=== PATIENT | male | born 1965 | race Caucasian/White ===

== ENCOUNTER → 2016-12-07 | Outpatient (REF) | payer MEDICARE | LOC: M LAB REF 12:54 | PROVIDERS: ATTEND Internal Medicine | DX: G40.309 Generalized idiopathic epilepsy and epileptic syndromes, not intractable, without status epilepticus (principal); I63.511 Cerebral infarction due to unspecified occlusion or stenosis of right middle cerebral artery; B00.89 Other herpesviral infection ==

== ENCOUNTER 2017-02-20 14:59 | Inpatient (IN) | payer MEDICARE ==
[~2017-02-20] VITALS: Ht 177.8 cm; Wt 70.5 kg
[2017-02-20] MEDS ORDERED: ZONI100C2 PO (15:18)
[2017-02-20] MEDS ORDERED: ESCI20TA (15:18)
[2017-02-20] MEDS ORDERED: BACL10TA2 PO (15:18)
[2017-02-20] MEDS ORDERED: ATOR40TA PO (15:18)
[2017-02-20] MEDS ORDERED: LAMO150T PO (15:18)
[2017-02-20] MEDS ORDERED: LORazepam 2 MG/ML VIAL (J2060) IV STA (15:32)
[2017-02-20 15:46] LABS: BASO # 0.1 K/mm3 (0.0-0.2); BASO % 1.1 % (0.0-1.0); EOS # 0.1 K/mm3 (0.0-0.50); EOS % 2.5 % (0.0-3.0); LARGE UNSTAINED CELL # 0.1 K/mm3 (0.0-0.4); LYMPH # 1.3 K/mm3 (1.5-4.5); LYMPH % 22.7 % (24.0-44.0); MEAN CORPUSCULAR HEMOGLOBIN 29.1 pg (27.0-33.0); MEAN CORPUSCULAR VOLUME 88.2 fl (80.0-96.0); MONO # 0.3 K/mm3 (0.0-0.8); MONO % 5.1 % (0.0-5.0); NEUTROPHILS # 3.8 K/mm3 (1.8-7.7); NEUTROPHILS % 67.6 % (36.0-66.0); PLATELET COUNT, AUTOMATED 270 k/mm3 (150-450); RED CELL DISTRIBUTION WIDTH 12.9 % (11.5-14.5); WHITE BLOOD COUNT 5.6 K/mm3 (4.0-10.0)
[2017-02-20 16:09] LABS: ANION GAP 6 MEQ/L (8-16); BLOOD UREA NITROGEN 12 MG/DL (7-18); CALCIUM LEVEL 8.3 MG/DL (8.5-10.1); CARBON DIOXIDE LEVEL 28 MEQ/L (21-32); CHLORIDE LEVEL 104 MEQ/L (98-107); CREATININE FOR GFR 0.96 MG/DL (0.70-1.30); GLOMERULAR FILTRATION RATE > 60.0 (>56); GLUCOSE, FASTING 96 MG/DL (70-105); POTASSIUM SERUM 3.6 MEQ/L (3.5-5.1); SODIUM LEVEL 138 MEQ/L (136-145)
[2017-02-20] MEDS ORDERED: ASPI1TAB PO (17:07)
[2017-02-20] MEDS ORDERED: lamoTRIgine 25 MG TAB PO ONE (17:15)
[2017-02-20] MEDS ORDERED: LORazepam 2 MG/ML VIAL (J2060) IV ONE (18:15)
[2017-02-20] MEDS ORDERED: ATORVASTATIN 20 MG TAB PO ONE (19:00)
[2017-02-20 20:00] VITALS: BP 130/78
[2017-02-20] MEDS ORDERED: LORazepam 2 MG/ML VIAL (J2060) IV PRN (20:30)
[2017-02-20] MEDS: lamoTRIgine 100MG TAB PO SCH (20:59)
[2017-02-20] MEDS: BACLOFEN 10 MG TAB PO SCH (20:59)
[2017-02-20] MEDS ORDERED: ZONISAMIDE 100 MG CAP (ZONEGRAN) PO SCH (21:00)
--- NOTE | 2017-02-20 21:02 | CCN ---
DATE: 02/20/2017 CRITICAL CARE NOTE: I was called to the emergency department to evaluate this 52-year-old male for intracranial hemorrhage. At 2:00 p.m. today. He noted shaking of his left arm, which was uncontrollable. He attempted to brace himself but fell against the table, striking the right side of his head. There was no loss of consciousness. The shaking subsided. He summoned the emergency services and was brought to the emergency department where workup revealed a 1 cm intracranial hemorrhage in the area of a prior right middle cerebral artery stroke. The patient denies any prodromal symptoms. His family, however, indicate that he has been having absence-type spells. His brother indicates that he has been more clumsy of late with some falling. The patient vehemently denies either of these. 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 REVIEW OF SYSTEMS: CONSTITUTIONAL: The patient denies any significant changes in appetite or weight. HEENT: He has mild difficulty with swallowing. No difficulty with hearing, smell or taste. CARDIOVASCULAR: He denies typical anginal-type chest pains, orthopnea, palpitations, paroxysmal nocturnal dyspnea, or claudication. GASTROINTESTINAL: There is a history of acid reflux disease. He has no history of gallbladder disease, hepatitis, or pancreatitis. GENITOURINARY: No frequency, dysuria, or kidney stone history. ENDOCRINE: No history of diabetes mellitus or thyroid disease. DERMATOLOGIC: No psoriasis or pruritic skin lesions. HEMATOLOGIC: No history of easy bruising or bleeding, prior blood clots or transfusions. NEUROLOGIC: He had a prior cerebrovascular accident (CVA) approximately three years ago and has had left-sided weakness since then. He has made some progress , albeit slow. He has intermittent partial seizures despite medications. MUSCULOSKELETAL: He has muscle spasms, aches and cramps. MEDICATIONS: Prior to admission the hospital include: - aspirin 81 mg a day - atorvastatin 40 mg at bedtime - baclofen 20 mg at bedtime - lamotrigine 150 mg twice a day - zonisamide 100 mg two at bedtime ALLERGIES: Include: LATEX. PHYSICAL EXAMINATION: At bedside, his temperature is 97, pulse rate 86, respirations 16, blood pressure 120/59. HEENT: He has some mild facial asymmetry from his prior stroke. There is a small superficial laceration above his right eye with steri-strips. His pupils respond to light. Oral mucosa is pink. Neck is supple. No meningismus. No adenopathy. Jugular veins flat. Carotid upstroke brisk. Heart sounds are regular without appreciable murmur. Breath sounds are coarse, clear to auscultation in all roberts. No focal adventitial breath sounds appreciated. Chest is symmetric, moves symmetrically. Abdomen is soft with intact bowel sounds. No palpable mass or organomegaly. Extremities show contracture deformities of the left hand and arm. Nails are not clubbed nor cyanosed. He has a brace on his left knee. There is no significant peripheral edema. Left-sided extremities are mildly hyperreflexic. He has minimal rn post partum strength of his left hand. DIAGNOSTIC STUDIES: CT scan of the head shows a 1 cm intracranial hemorrhage in the area of previous MCA stroke. The dictated report is not available. LABORATORY DATA: Sodium is 138, potassium 3.6, chloride 104, CO2 28, BUN 12, creatinine 0.96, glucose 96. White count is 5.6, hemoglobin 14.6, hematocrit 44.2, platelet count 270,000. The primary problem requiring critical attention is acute intracranial hemorrhage. It is difficult to determine the timing as the patient's family indicates that he has had more symptoms lately. It is possible that this may have occurred days ago or it is possible that this may have occurred as a result of his fall earlier today. We will admit him to the intensive care unit, closely monitor blood pressures, and repeat a CT in the morning to determine if there is any progression of bleeding. Seizure disorder. We will increase his delivered dose of Lamictal, continue his other antiepileptic medications and consult neurology. 78 minutes were spent in the provision of bedside critical care and coordination. [facility]ACILITYNano
[2017-02-21] VITALS (7 sets, daily range): BP systolic 103–133; BP diastolic 53–74
[2017-02-21] MEDS ORDERED: ESCI20TA PO (00:14)
[2017-02-21 05:20] LABS: BASO % 0.7 % (0.0-1.0); EOS # 0.2 K/mm3 (0.0-0.50); EOS % 2.6 % (0.0-3.0); LARGE UNSTAINED CELL # 0.1 K/mm3 (0.0-0.4); LARGE UNSTAINED CELL % 1.5 % (0.0-4.0); LYMPH # 1.9 K/mm3 (1.5-4.5); MEAN CORPUSCULAR HEMOGLOBIN 29.6 pg (27.0-33.0); MEAN CORPUSCULAR HGB CONC 32.9 g/dl (32.0-36.5); MEAN CORPUSCULAR VOLUME 89.8 fl (80.0-96.0); MONO # 0.4 K/mm3 (0.0-0.8); MONO % 6.5 % (0.0-5.0); NEUTROPHILS # 4.2 K/mm3 (1.8-7.7); NEUTROPHILS % 60.7 % (36.0-66.0); PLATELET COUNT, AUTOMATED 289 k/mm3 (150-450); RED CELL DISTRIBUTION WIDTH 12.8 % (11.5-14.5); WHITE BLOOD COUNT 6.9 K/mm3 (4.0-10.0)
[2017-02-21 05:39] LABS: ALBUMIN 3.5 GM/DL (3.2-5.2); ALBUMIN/GLOBULIN RATIO 1.13 (1.00-1.93); ALKALINE PHOSPHATASE 131 U/L (45-117); ALT/SGPT 63 U/L (12-78); ANION GAP 8 MEQ/L (8-16); AST/SGOT 23 U/L (15-37); BILIRUBIN,TOTAL 0.6 MG/DL (0.2-1.0); BLOOD UREA NITROGEN 8 MG/DL (7-18); CALCIUM LEVEL 8.3 MG/DL (8.5-10.1); CARBON DIOXIDE LEVEL 26 MEQ/L (21-32); CHLORIDE LEVEL 106 MEQ/L (98-107); CREATININE FOR GFR 0.91 MG/DL (0.70-1.30); GLOMERULAR FILTRATION RATE > 60.0 (>56); GLUCOSE, FASTING 86 MG/DL (70-105); POTASSIUM SERUM 3.8 MEQ/L (3.5-5.1); SODIUM LEVEL 140 MEQ/L (136-145); TOTAL PROTEIN 6.6 GM/DL (6.4-8.2)
--- NOTE | 2017-02-21 06:06 | REP ---
CT study of the brain without contrast: History: History of seizures. Fall. Seizure. Comparison CT study is from March 31, 2015. Findings: Bone window settings demonstrate an intact bony calvarium. No skull fracture is seen. No scalp hematoma is appreciated. Digital lateral field checker view is unremarkable. On soft tissue window settings, there is a large old right middle cerebral artery territory infarction. However, within this area of encephalomalacia, today's study shows a 1 cm area of hyperdensity compatible with a small focus of acute hemorrhage. There is diffuse cerebral atrophy and concordant enlargement of the lateral ventricles unchanged from the comparison study. Some vascular calcification is seen in the distal carotid arteries bilaterally. No acute infarction is seen. No other hemorrhage is appreciated. No mass or midline shift is seen. Impression: 1. Large old right middle cerebral artery territory infarction. Encephalomalacia and enlargement of the right lateral ventricle seen, unchanged from prior status study. Diffuse atrophy is seen also unchanged. 2. There is a 1 cm well circumscribed focal hemorrhage within the area of encephalomalacia in the right posterior frontal lobe. These findings were telephoned to Dr. Mcpherson the referring provider, at the time of this dictation. Signed by Behzad Schumacher MD 02/21/2017 08:23 A
--- NOTE | 2017-02-21 06:40 | REPUSA ---
CLINICAL HISTORY: Followup on intracranial hemorrhage. TECHNIQUE: Multiple axial CT images were obtained through the brain without IV contrast material. COMMENTS: Comparison is made to the prior exam performed on 02/20/17. Unchanged 7.4 mm hyperdense area in the posterior/superior aspect of the encephalomalacia cavity in t he territory of the right middle cerebral artery. There is normal configuration of sella turcica. There is no mass effect or midline shift. No hydroce phalus is present. The ventricles are symmetrical. No abnormal calcifications are present. There is diffuse age-appropriate cerebellar and cerebral atrophy with proportionally dilated ventricl es and cortical sulci. There are bilateral periventricular and subcortical white matter hypolucencies compatible with mild c hronic microvascular disease. Otherwise, no significant focal abnormalities are seen either in the posterior fossa or supratentoria l compartment. IMPRESSION: Unchanged 7.4 mm hyperdense area in the posterior/superior aspect of the encephalomalacia cavity in t he territory of the right middle cerebral artery. Thank you for your kind referral of this patient.
[2017-02-21] MEDS: lamoTRIgine 100MG TAB PO SCH ×2 (09:00→21:09)
[2017-02-21] MEDS: ZONISAMIDE 100 MG CAP (ZONEGRAN) PO SCH (09:00)
--- NOTE | 2017-02-21 10:22 | CCN ---
DATE: 02/21/2017 CRITICAL CARE NOTE: The patient is seen in the intensive care unit. He has had no further seizure activity. His blood pressures have been good through the night. He is awake, alert with no complaint at this time. His temperature is 97, pulse rate 69, respirations 20, blood pressure 103/54. I and O for the past 24 hours 100 in, 350 out. Since midnight 100 in, 650 out. At bedside, he is awake and in no acute distress. His oral mucosa is pink. Neck is supple. No meningismus. He has facial asymmetry. Speech is reasonably clear. Heart sounds are regular without appreciable murmur. The breath sounds are clear to auscultation in all roberts. Abdomen soft. Extremities: There is contracture of his left arm unchanged. DIAGNOSTIC STUDIES: Sodium is 140, potassium 3.8, chloride 106, CO2 26, BUN 8, creatinine 0.91, glucose 86, white cell count 6.9, hemoglobin 48, hematocrit 45, platelet count 289,000. CT scan of the head was performed this morning and on comparison with prior image, there has been no change in the intracranial hemorrhage size. The primary problem requiring critical attention is acute intracranial hemorrhage. As there has been no change on his CT, we are making the assumption that he is clinically stable and no further bleeding is occurring. As he has had no hypertensive episodes and no further seizure activity, we will plan to move him out of the intensive care unit today. I have discussed the case with the hospitalists who have been kind enough to accept him in transfer to the general medical floor. The patient follows with neurology for his antiepileptic therapy and they are evaluating him on consultation and will sort through the appropriate doses prior to his planned discharge. 42 minutes spent in the provision of bedside critical care and coordination.
--- NOTE | 2017-02-21 17:04 | IPN ---
DATE: 02/21/2017 Patient's care transferred over from intensive care unit (ICU) team to hospitalist team. Denies any chest pain, pressure or discomfort. Denies any further episodes of seizure. The patient denies any shortness of breath. VITAL SIGNS: Temperature 98.6, pulse 74, respirations 18, blood pressure 113/71, pulse oximetry 97% on room air. LABORATORY DATA: WBC 6.9, hemoglobin and hematocrit 14.8 over 48, platelets 289. Chemistry: Sodium 140, potassium 3.8, chloride 106, bicarbonate 26, BUN 8, creatinine 0.91. PHYSICAL EXAMINATION: General: Patient alert and oriented times three, in no acute distress. The patient has some mild facial asymmetry, appears to be from his stroke. Small superficial laceration above his right eye with Steri-Strips. Pupils bilaterally equal and reactive to light. Moist mucous membranes. Neck: Supple. Cardiac: Regular rate and rhythm. Normal S1, S2. Abdomen: Soft. Normal bowel sounds. Extremities: Contracture deformity of left hand and arm. Left shoulder also weak. Left lower extremity extension also weaker. Right upper and lower extremities have 5/5 strength. Left-sided extremity mild hyperreflexia. Minimal senior qa engineer strength on left hand. ASSESSMENT AND PLAN: This is a 52-year-old male patient with underlying medical history of hypertension, right middle cerebral artery (MCA) stroke, gastroesophageal reflux disease (GERD), seizure disorder secondary to stroke and depression, admitted with partial seizure with fall, subsequently with intracranial hemorrhage. Problems: 1. Intracranial hemorrhage. Case was initially followed by ICU team, and as per Dr. Kohli, Neurosurgery was consulted. There is no acute neurosurgical intervention. Neurologic check was done. The patient still shows no new focal neurological deficit. Repeat CT was done showing no change. Subsequently, patient's care was transferred to hospitalist team. 2. Seizure. Neurologist, Dr. Gruber, was consulted. Medication was adjusted. The patient's Lamictal 300 mg by mouth twice a day was continued. Zonisamide was increased to 100 mg by mouth in the morning and 200 mg by mouth nightly. Neurology was consulted. Followup with neurology for further care and recommendations. Followup Lamictal level. 3. Dyslipidemia. Continue statin. 4. History of cerebrovascular accident. Aspirin has been on hold given intracranial hemorrhage. Physical therapy has been ordered. 5. Gastroesophageal reflux disease (GERD). Continue proton pump inhibitor (PPI). 6. Depression. Continue current medication. 7. Deep vein thrombosis (DVT) prophylaxis. Sequential compression device. Unable to give any pharmacological anticoagulation given patient with intracranial hemorrhage, early ambulation.
[2017-02-21] MEDS ORDERED: ZONISAMIDE 100 MG CAP (ZONEGRAN) PO SCH (21:00)
[2017-02-21] MEDS: BACLOFEN 10 MG TAB PO SCH (21:09)
[2017-02-22 05:58] LABS: MEAN CORPUSCULAR HEMOGLOBIN 29.7 pg (27.0-33.0); MEAN CORPUSCULAR VOLUME 87.2 fl (80.0-96.0); RED CELL DISTRIBUTION WIDTH 12.9 % (11.5-14.5); WHITE BLOOD COUNT 6.5 K/mm3 (4.0-10.0)
[2017-02-22 06:00] VITALS: BP 113/56
[2017-02-22 06:10] LABS: ANION GAP 7 MEQ/L (8-16); BLOOD UREA NITROGEN 12 MG/DL (7-18); CALCIUM LEVEL 8.4 MG/DL (8.5-10.1); CARBON DIOXIDE LEVEL 26 MEQ/L (21-32); CHLORIDE LEVEL 107 MEQ/L (98-107); CREATININE FOR GFR 0.98 MG/DL (0.70-1.30); GLOMERULAR FILTRATION RATE > 60.0 (>56); GLUCOSE, FASTING 96 MG/DL (70-105); MAGNESIUM LEVEL 2.5 MG/DL (1.8-2.4); SODIUM LEVEL 140 MEQ/L (136-145)
[2017-02-22] MEDS: lamoTRIgine 100MG TAB PO SCH (08:09)
[2017-02-22] MEDS: ZONISAMIDE 100 MG CAP (ZONEGRAN) PO SCH (10:03)
[2017-02-22] MEDS ORDERED: ZONI100C2 PO (11:05)
--- NOTE | 2017-02-23 13:33 | DSES ---
DATE OF ADMISSION: 02/20/2017 DATE OF DISCHARGE: 02/22/2017 NEUROLOGIST: Dr. Jaime covered by Dr. Gruber. C D AREA SUPERVISOR: Dr. Kohli. PRIMARY CARE PROVIDER: Dr. Ricci. NEUROSURGEON: Consulted Dr. Nelson. FINAL DIAGNOSES: 1. Intracranial hemorrhage. 2. Seizure. 3. Dyslipidemia. 4. History of cerebrovascular accident (CVA). 5. Gastroesophageal reflux disease (GERD). 6. Depression. HISTORY OF PRESENT ILLNESS: This is a 52-year-old male patient with underlying medical history of hypertension, right middle cerebral artery cerebrovascular accident (CVA), gastroesophageal reflux disease (GERD), seizure disorder, and depression who presented to the hospital at 2:00 p.m. on the date of admission with a shaking episode of left arm, questionable focal seizure that is uncontrollable, attempted to brace himself but fell against the table striking the right side of his head, but there was no loss of consciousness. Shaking subsided and he summoned emergency medical services (EMS) who brought the patient to the hospital. CT scan shows 1 cm of intracranial hemorrhage in the area of prior right middle cerebral artery stroke. The patient denies any prodromal symptoms. His family, however, indicated that he has been having absent-type spells and his brother indicates that he has been more clumsy lately with some falling. The patient denies any of those events. HOSPITAL COURSE: The patient was initially admitted to the intensive care unit (ICU) by the rotogravure press operator with neurosurgery, Dr. Nelson, as it architecture consultant. As per Dr. Nelson, there is no neurosurgical intervention. Neurology was consulted. The patient's seizure medication was adjusted as per neurology recommendations. Physical therapy was done. The patient later was transferred to hospital service after monitored in the ICU. Physical therapy has optimized the patient. He is cleared by physical therapy for discharge and case discussed with Dr. Gruber. The patient is currently okay for discharge, tolerating oral, back to baseline. The patient's seizure medication has been increased. Zonisamide has been adjusted from 100 in the morning and 200 at night to 200 twice a day. VITAL SIGNS: Temperature 98.4, pulse 81, respirations 18, blood pressure is 113/56, pulse oximetry 97% on room air. LABORATORY DATA: WBC 6.5, hemoglobin and hematocrit 14.7/43.4, platelets 284. Chemistry: Sodium 140, potassium 4, chloride 107, bicarbonate 26, BUN 12, creatinine 0.98. DISCHARGE MEDICATIONS: - atorvastatin 40 mg by mouth at bedtime - baclofen 20 mg by mouth at bedtime - Lexapro 20 mg by mouth daily - Lamictal 300 mg by mouth twice a day - zonisamide increased to 200 mg by mouth twice a day - aspirin has been discontinued DISCHARGE INSTRUCTIONS: The patient is instructed to followup with neurology in 10 days, Dr. Jaime, and primary care provider in seven days. Return to the hospital if symptoms worsen. Fall precautions. Seizure precautions. Restart aspirin as per neurology.
== END 2017-02-22 13:36 | disposition home or self-care (01) | DRG 86 ==
LOC: EDBD 14:59 → EDSEX 14:59 → M ED 16:42 → M ED INP 18:12 → M ICU 19:56 → M MSPAV 02-21 11:00
PROVIDERS: ADMIT Internal Medicine Pulmonary Disease; ATTEND Hospitalist
DX: S06.340A Traumatic hemorrhage of right cerebrum without loss of consciousness, initial encounter (principal); I69.354 Hemiplegia and hemiparesis following cerebral infarction affecting left non-dominant side; W22.03XA Walked into furniture, initial encounter; Y92.009 Unspecified place in unspecified non-institutional (private) residence as the place of occurrence of the external cause; E78.5 Hyperlipidemia, unspecified; F32.9 Major depressive disorder, single episode, unspecified; G40.909 Epilepsy, unspecified, not intractable, without status epilepticus; K21.9 Gastro-esophageal reflux disease without esophagitis; Z79.899 Other long term (current) drug therapy; Z79.82 Long term (current) use of aspirin; I69.898 Other sequelae of other cerebrovascular disease

== ENCOUNTER 2017-02-26 10:11 | Observation (INO) | payer MEDICARE ==
[~2017-02-26] VITALS: Ht 177.8 cm; Wt 82.1 kg
[2017-02-26] MEDS: lamoTRIgine 100MG TAB PO SCH ×2 (09:00→20:44)
[~2017-02-26 10:11] MED LIST: ASPI1TAB PO; ATOR40TA PO; BACL10TA2 PO; ESCI20TA; ESCI20TA PO; LAMO150T PO; ZONI100C2 PO
[2017-02-26] MEDS ORDERED: BACL10TA2 PO (10:25)
[2017-02-26] MEDS ORDERED: ZONI100C2 PO (10:27)
[2017-02-26] MEDS ORDERED: VITA200038 PO (10:31)
[2017-02-26] MEDS ORDERED: LORazepam 2 MG/ML VIAL (J2060) IV STA (10:43)
[2017-02-26] MEDS ORDERED: NS 1,000 ML IV ONE (10:45)
[2017-02-26] MEDS ORDERED: LORazepam 2 MG/ML VIAL (J2060) As Ordered ONE (10:46)
[2017-02-26 11:24] LABS: BASO % 0.3 % (0.0-1.0); EOS # 0.1 K/mm3 (0.0-0.50); EOS % 1.2 % (0.0-3.0); LARGE UNSTAINED CELL % 0.5 % (0.0-4.0); LYMPH # 0.8 K/mm3 (1.5-4.5); LYMPH % 10.8 % (24.0-44.0); MEAN CORPUSCULAR HEMOGLOBIN 29.5 pg (27.0-33.0); MEAN CORPUSCULAR HGB CONC 33.5 g/dl (32.0-36.5); MEAN CORPUSCULAR VOLUME 88.1 fl (80.0-96.0); MONO # 0.3 K/mm3 (0.0-0.8); NEUTROPHILS # 6.3 K/mm3 (1.8-7.7); NEUTROPHILS % 83.1 % (36.0-66.0); PLATELET COUNT, AUTOMATED 298 k/mm3 (150-450); RED CELL DISTRIBUTION WIDTH 12.7 % (11.5-14.5); WHITE BLOOD COUNT 7.6 K/mm3 (4.0-10.0)
[2017-02-26 11:43] LABS: ANION GAP 9 MEQ/L (8-16); BLOOD UREA NITROGEN 11 MG/DL (7-18); CALCIUM LEVEL 8.8 MG/DL (8.5-10.1); CARBON DIOXIDE LEVEL 24 MEQ/L (21-32); CHLORIDE LEVEL 106 MEQ/L (98-107); CREATININE FOR GFR 0.95 MG/DL (0.70-1.30); GLOMERULAR FILTRATION RATE > 60.0 (>56); GLUCOSE, FASTING 96 MG/DL (70-105); POTASSIUM SERUM 3.9 MEQ/L (3.5-5.1); SODIUM LEVEL 139 MEQ/L (136-145)
--- NOTE | 2017-02-26 11:48 | REP ---
CT BRAIN WITHOUT CONTRAST: CT brain is performed without IV contrast and compared to prior study of 02/21/2017. Once again, there is moderate atrophy. There is an apparent old infarct in the vascular distribution of the right middle cerebral artery. In the posterior aspect of that cavity of encephalomalacia, a small area of hemorrhage is seen. This has decreased in size when compared to the prior study of 02/21/2017. Current diameter is approximately 3-4 mm and it is less dense than on the prior study. No new areas of hemorrhage are seen in any portion of the brain. There is no extra-axial fluid collection. There is no midline shift or mass effect. Bone window examination is essentially unremarkable. IMPRESSION: Resolving focal hemorrhage in the right parietal region, in the posterior aspect of the cavity of encephalomalacia which is in the vascular distribution of the right middle cerebral artery. No new areas of hemorrhage. Otherwise no change since prior study 02/21/2017. Signed by Ramón Schultz MD 02/26/2017 07:55 P
[2017-02-26] MEDS ORDERED: lamoTRIgine 100MG TAB PO ONE (13:45)
[2017-02-26] MEDS ORDERED: ZONISAMIDE 100 MG CAP (ZONEGRAN) PO ONE (14:00)
[2017-02-26] MEDS ORDERED: ACETAMINOPHEN TAB 650MG DOSE (2X325MG) PO PRN (14:15)
--- NOTE | 2017-02-26 14:55 | HPE ---
DATE OF ADMISSION: 02/26/2017 PRIMARY CARE PROVIDER: Dr. Ricci. HISTORY OF PRESENT ILLNESS: This patient is a 52-year-old male with a past medical history significant for hypertension, right middle cerebral artery cerebrovascular accident (CVA), intracranial hemorrhage, seizure, dyslipidemia, depression, gastroesophageal reflux disease (GERD), who came to [facility] on 02/26/2017, for acute occurrence of seizure. This morning around 09:30, the patient was sitting on the sofa. The patient started having intractable shaking of the left side, and the patient's brother ran downstairs and saw the patient started to have a generalized grand-mal seizure. The patient noted to have approximately five minutes of loss of consciousness with tongue biting. The patient was suspected to have stopped breathing for 30 seconds, and the patient was sent to [facility] for urgent evaluation. The patient does have a history of right middle cerebral artery CVA. The patient's case was discussed with the on-call neurologist, Dr. Jaime, and the patient hospitalist was consulted for admission. ALLERGIES: LATEX. PAST MEDICAL HISTORY: 1. Hypertension. 2. Right middle cerebral artery CVA. 3. Intracranial hemorrhage. 4. Gastroesophageal reflux disease. 5. History of seizure disorder. 6. Depression. SOCIAL HISTORY: Denies smoking, denies drinking, denies any recreational drug use. HOME MEDICATIONS: - atorvastatin 40 mg by mouth at bedtime - Baclofen 20 mg by mouth at bedtime - Lexapro 20 mg by mouth daily - Lamictal 300 mg by mouth twice a day - zonisamide 200 mg by mouth twice a day REVIEW OF SYSTEMS: HEENT: No vision changes, no auditory changes. CARDIOVASCULAR: No chest pain or palpitations. RESPIRATORY: The patient denied any shortness of breath or cough. No sputum production. GASTROINTESTINAL: No nausea, no vomiting, no abdominal pain. No diarrhea. MUSCULOSKELETAL: No muscle pain or joint pain. NEUROLOGIC: The patient had a right middle cerebral artery CVA, resulting in left-sided weakness. The patient also has a history of intracranial hemorrhages resulting in recent hospitalizations. OBJECTIVE: VITAL SIGNS: Temperature is 98.5, pulse is 88, respirations 16, blood pressure 122/82, pulse oximetry 98% on room air. GENERAL: Anxious, no sign of acute distress. Alert and oriented times three. HEENT: Mild left facial droop. There is some old bruise/minor lesion at the corner of the right eyebrow. CARDIOVASCULAR: Positive S1, S2. Regular rate. LUNGS: Clear to auscultation bilaterally. ABDOMEN: Soft, nontender, nondistended. Bowel sounds present. EXTREMITIES: No lower extremity edema. No sign of cyanosis. NEUROLOGIC: Decreased muscle strength of the left lower extremity and left upper extremity. Facial droop left lower face. Sensation to fine touch grossly intact. LABORATORY DATA: WBC is 7.6, hemoglobin 15.8, hematocrit 47.1, platelet count 298. Sodium is 139, potassium 3.9, chloride 106, carbon dioxide 24, BUN 11, creatinine 0.95, GFR greater than 60, fasting glucose 96, calcium 8.8. IMAGING: CT of the head without contrast showed resolving focal hemorrhages in the right parietal region in the posterior aspect of the cavity of encephalomalacia which is in the vascular distribution of the right middle cerebral artery. No new area of hemorrhage. ASSESSMENT AND PLAN: 1. Grand-mal seizure. 2. Intracranial hemorrhages of the right parietal lobe. 3. Right middle cerebral artery cerebrovascular accident. 4. Gastroesophageal reflux disease. 5. Depression. 6. History of seizures. PLAN: The patient is admitted to the progressive care unit (PCU) under observation status. The patient has a history of intracranial hemorrhages and based on the repeat CT, hemorrhages are resolving. The case was discussed with on-call neurologist, Dr. Jaime. Recommends Lamictal 300 mg by mouth twice a day, and zonisamide 300 mg by mouth twice a day. The patient will be on seizure precautions. The patient will be on heparin for deep venous thrombosis (DVT) prophylaxis. I will continue Lexapro for the patient's depression.
[2017-02-26 15:15] VITALS: BP 122/70
[2017-02-26] MEDS ORDERED: LORazepam 2 MG TAB PO PRN (15:45)
[2017-02-26] MEDS: VITAMIN D 1,000 INTERNATIONAL UNITS TABLET PO SCH (15:52)
[2017-02-26] MEDS: BACLOFEN 10 MG TAB PO SCH ×2 (15:52→20:44)
[2017-02-26] MEDS ORDERED: LORazepam 2 MG/ML VIAL (J2060) IV PRN (16:00)
[2017-02-26 20:00] VITALS: BP 110/62; PULSE 105
[2017-02-26] MEDS: HEPARIN SOD (PORCINE) 5000 UNITS/ML VIAL SC SCH (20:45)
[2017-02-26] MEDS: ZONISAMIDE 100 MG CAP (ZONEGRAN) PO SCH (20:49)
[2017-02-26] MEDS ORDERED: SLF 3 ML SYR IV PRN (21:00)
[2017-02-26] MEDS ORDERED: ESCITALOPRAM OXALATE 10 MG TAB (LEXAPRO) PO SCH (21:00)
[2017-02-26] MEDS ORDERED: ATORVASTATIN 20 MG TAB PO SCH (21:00)
[2017-02-26] MEDS: SLF 3 ML SYR IV SCH (22:00)
[2017-02-27] VITALS: BP 109/59; PULSE 75
[2017-02-27 04:00] VITALS: BP 108/55; PULSE 69
[2017-02-27 05:16] LABS: MEAN CORPUSCULAR HEMOGLOBIN 29.6 pg (27.0-33.0); MEAN CORPUSCULAR HGB CONC 33.2 g/dl (32.0-36.5); MEAN CORPUSCULAR VOLUME 89.2 fl (80.0-96.0); RED CELL DISTRIBUTION WIDTH 12.9 % (11.5-14.5); WHITE BLOOD COUNT 6.6 K/mm3 (4.0-10.0)
[2017-02-27 05:37] LABS: ANION GAP 5 MEQ/L (8-16); BLOOD UREA NITROGEN 11 MG/DL (7-18); CALCIUM LEVEL 8.4 MG/DL (8.5-10.1); CARBON DIOXIDE LEVEL 26 MEQ/L (21-32); CHLORIDE LEVEL 108 MEQ/L (98-107); CREATININE FOR GFR 0.91 MG/DL (0.70-1.30); GLOMERULAR FILTRATION RATE > 60.0 (>56); GLUCOSE, FASTING 94 MG/DL (70-105); POTASSIUM SERUM 3.9 MEQ/L (3.5-5.1); SODIUM LEVEL 139 MEQ/L (136-145)
[2017-02-27] MEDS: SLF 3 ML SYR IV SCH ×2 (06:08→14:00)
[2017-02-27] MEDS: HEPARIN SOD (PORCINE) 5000 UNITS/ML VIAL SC SCH ×2 (06:08→14:00)
[2017-02-27 07:20] VITALS: BP 120/72
[2017-02-27] MEDS: ZONISAMIDE 100 MG CAP (ZONEGRAN) PO SCH (08:56)
[2017-02-27] MEDS: BACLOFEN 10 MG TAB PO SCH (08:57)
[2017-02-27] MEDS: lamoTRIgine 100MG TAB PO SCH (08:57)
[2017-02-27] MEDS: VITAMIN D 1,000 INTERNATIONAL UNITS TABLET PO SCH (08:57)
[2017-02-27 12:00] VITALS: BP 98/60
[2017-02-27] MEDS ORDERED: ZONI100C2 PO (12:22)
--- NOTE | 2017-02-27 15:05 | DSES ---
DATE OF ADMISSION: 02/26/2017 DATE OF DISCHARGE: 02/27/2017 Patient admitted for observation. NEUROLOGIST: Jose Antonio Jaime MD PRIMARY CARE PROVIDER: Maynor Ricci MD FINAL DIAGNOSES: Grand mal seizure. Recent history of intracranial hemorrhage with right parietal lobe. Right middle cerebral artery cerebrovascular accident (CVA). Gastroesophageal reflux disease (GERD). Depression. History of seizures. HISTORY OF PRESENT ILLNESS: This is a 52-year-old male patient with past medical history of hypertension, right middle cerebral artery CVA with intracranial hemorrhage and seizures, dyslipidemia, depression, GERD, came to [facility] on 02/26/2017 for acute seizure. Morning, at 9:30, patient was sitting on the sofa and patient started having intractable shaking of the left side and the patient's brother ran downstairs, saw that patient had started having general grand mal seizure. Noted to have approximately 5 minutes of loss of consciousness with tongue biting. Patient was suspected to have stopped breathing for about 30 seconds, and the patient was sent to [facility] for evaluation. Given Ativan in the emergency department (ED). Case was discussed with the on-call neurologist, Dr. Jaime. Patient was admitted to hospital for overnight observation. Seizure medication was adjusted. Further history taken. Patient has been taking the wrong dosage of medication for the past 2 days due to medication confusion between patient and patient's family. Patient has not been taking Lamictal. Currently, patient is back to baseline, comfortable, in no acute distress. Case discussed with neurology. Patient can be discharged for further care as outpatient. VITAL SIGNS: Temperature 98.6, pulse 87, respirations 18, blood pressure 120/72, pulse oximetry 100% on room air. LABORATORIES: WBC 6.6, hemoglobin and hematocrit 14.4/43.5, platelets 288. Chemistries: Sodium 139, potassium 3.9, chloride 108, bicarbonate 26, BUN 11, creatinine 0.91. DISCHARGE MEDICATION: - atorvastatin 10 mg by mouth nightly - baclofen 10 mg by mouth three times a day - vitamin D 2000 units by mouth daily - Lexapro 20 mg by mouth nightly - lamotrigine 300 mg by mouth twice a day - zonisamide 300 mg by mouth twice a day Aspirin has been on hold since the episode of intracranial bleeding. DISCHARGE INSTRUCTIONS: Patient was instructed to followup with primary care provider in 7 days, neurologist in 1-2 weeks. Return to the hospital if symptoms worsen. Seizure precautions. Edited: 02/28/2017 [id number]
== END 2017-02-27 14:55 | disposition home or self-care (01) ==
LOC: EDBD 10:11 → M ED 10:53 → M ED INP 14:07 → M PCU 15:09
PROVIDERS: ADMIT Internal Medicine; ATTEND Hospitalist
DX: G40.409 Other generalized epilepsy and epileptic syndromes, not intractable, without status epilepticus (principal); Z86.73 Personal history of transient ischemic attack (TIA), and cerebral infarction without residual deficits; K21.9 Gastro-esophageal reflux disease without esophagitis; F32.9 Major depressive disorder, single episode, unspecified; I10 Essential (primary) hypertension; E78.5 Hyperlipidemia, unspecified; Z79.899 Other long term (current) drug therapy
CPT/HCPCS: 36415; 70450; 80048; 80175; 80203; 85025; 85027; 96361; 96374; 97161; 99285; G0378; G8978; G8979; G8980; J2060

== ENCOUNTER 2017-03-10 00:37 | Observation (INO) | payer MEDICARE ==
[~2017-03-10] VITALS: Ht 177.8 cm; Wt 70.5 kg
[~2017-03-10 00:37] MED LIST changes: +VITA200038 PO
[2017-03-10 01:00] LABS: BASO % 0.2 % (0.0-1.0); EOS # 0.2 K/mm3 (0.0-0.50); EOS % 3.1 % (0.0-3.0); LARGE UNSTAINED CELL # 0.1 K/mm3 (0.0-0.4); LARGE UNSTAINED CELL % 1.5 % (0.0-4.0); LYMPH # 1.3 K/mm3 (1.5-4.5); LYMPH % 16.7 % (24.0-44.0); MEAN CORPUSCULAR HEMOGLOBIN 29.7 pg (27.0-33.0); MEAN CORPUSCULAR HGB CONC 34.2 g/dl (32.0-36.5); MONO # 0.4 K/mm3 (0.0-0.8); MONO % 5.1 % (0.0-5.0); NEUTROPHILS # 5.6 K/mm3 (1.8-7.7); NEUTROPHILS % 73.3 % (36.0-66.0); PLATELET COUNT, AUTOMATED 304 k/mm3 (150-450); WHITE BLOOD COUNT 7.7 K/mm3 (4.0-10.0)
[2017-03-10 01:06] LABS: INR 1.03
--- NOTE | 2017-03-10 01:10 | REPUSA ---
CT of the head Clinical history: CVA. Protocol: Multiple axial CT images obtained with 5 mm slice thickness were obtained through the head without administration of contrast. Comparison: 02/26/2017. Findings: The ventricles and sulci are symmetric but prominent in size bilaterally. Encephalomalacia in the right frontal lobe is stable. There are periventricular areas of low attenuation throughout th e deep white matter. There is no evidence of acute hemorrhage or infarct. There is no midline shift, mass effect, or extra-axial fluid collection. The osseous structures are unremarkable. The visualized paranasal sinuses and mastoid air cells are clear. Impression: No acute hemorrhage or infarct. Chronic right frontal lobe infarct. The other findingss a re consistent with stable age-related atrophy and chronic small vessel ischemic disease.
[2017-03-10] MEDS ORDERED: ONDANSETRON 4MG/2ML VIAL (J2405) As Ordered ONE (01:12)
[2017-03-10] MEDS ORDERED: ONDANSETRON 4MG/2ML VIAL (J2405) IV ONE (01:15)
[2017-03-10 01:23] LABS: ANION GAP 7 MEQ/L (8-16); BLOOD UREA NITROGEN 22 MG/DL (7-18); CALCIUM LEVEL 9.4 MG/DL (8.5-10.1); CARBON DIOXIDE LEVEL 28 MEQ/L (21-32); CHLORIDE LEVEL 103 MEQ/L (98-107); CREATININE FOR GFR 1.33 MG/DL (0.70-1.30); GLOMERULAR FILTRATION RATE 59.9 (>56); GLUCOSE, FASTING 87 MG/DL (70-105); POTASSIUM SERUM 3.6 MEQ/L (3.5-5.1); SODIUM LEVEL 138 MEQ/L (136-145)
[2017-03-10 02:53] LABS: ALBUMIN 3.7 GM/DL (3.2-5.2); ALBUMIN/GLOBULIN RATIO 0.86 (1.00-1.93); ALKALINE PHOSPHATASE 116 U/L (45-117); ALT/SGPT 34 U/L (12-78); AST/SGOT 21 U/L (15-37); BILIRUBIN,DIRECT 0.1 MG/DL (0.0-0.2); BILIRUBIN,TOTAL 0.7 MG/DL (0.2-1.0)
[2017-03-10 03:11] LABS: METHADONE URINE NEGATIVE (NEGATIVE)
[2017-03-10] MEDS ORDERED: ZONI100C2 PO (03:19)
[2017-03-10 04:30] VITALS: BP 128/90
[2017-03-10 05:54] LABS: BASO % 0.4 % (0.0-1.0); EOS # 0.2 K/mm3 (0.0-0.50); EOS % 3.1 % (0.0-3.0); LARGE UNSTAINED CELL # 0.1 K/mm3 (0.0-0.4); LARGE UNSTAINED CELL % 1.7 % (0.0-4.0); LYMPH # 1.6 K/mm3 (1.5-4.5); LYMPH % 25.6 % (24.0-44.0); MEAN CORPUSCULAR HEMOGLOBIN 29.3 pg (27.0-33.0); MEAN CORPUSCULAR HGB CONC 33.8 g/dl (32.0-36.5); MEAN CORPUSCULAR VOLUME 86.9 fl (80.0-96.0); MONO # 0.4 K/mm3 (0.0-0.8); MONO % 5.6 % (0.0-5.0); NEUTROPHILS # 3.9 K/mm3 (1.8-7.7); NEUTROPHILS % 63.6 % (36.0-66.0); PLATELET COUNT, AUTOMATED 307 k/mm3 (150-450); RED CELL DISTRIBUTION WIDTH 13.1 % (11.5-14.5); WHITE BLOOD COUNT 6.2 K/mm3 (4.0-10.0)
--- NOTE | 2017-03-10 06:16 | ECGEPIP ---
Stationary ECG Study [facility] - ED Test Date: 2017-03-10 Pat Name: MADISON BOWSER Department: Room: - Gender: M Piccoloist: florentin : 1965 Requested By: FRANCK Zheng Order Number: [id number] Reading MD: Amarjit Hahn Measurements Intervals [place] Rate: 85 P: 52 CT: 177 QRS: 53 QRSD: 90 T: 32 QT: 346 QTc: 413 Interpretive Statements SINUS RHYTHM Electronically Signed On 03-10-2017 6:15:42 EDT by Amarjit Hahn
[2017-03-10 06:22] LABS: ALBUMIN 3.5 GM/DL (3.2-5.2); ALBUMIN/GLOBULIN RATIO 0.92 (1.00-1.93); ALKALINE PHOSPHATASE 110 U/L (45-117); ALT/SGPT 30 U/L (12-78); ANION GAP 8 MEQ/L (8-16); AST/SGOT 17 U/L (15-37); BILIRUBIN,TOTAL 0.7 MG/DL (0.2-1.0); BLOOD UREA NITROGEN 22 MG/DL (7-18); CALCIUM LEVEL 8.9 MG/DL (8.5-10.1); CARBON DIOXIDE LEVEL 26 MEQ/L (21-32); CHLORIDE LEVEL 104 MEQ/L (98-107); CREATININE FOR GFR 1.23 MG/DL (0.70-1.30); GLOMERULAR FILTRATION RATE > 60.0 (>56); GLUCOSE, FASTING 82 MG/DL (70-105); MAGNESIUM LEVEL 2.4 MG/DL (1.8-2.4); POTASSIUM SERUM 3.6 MEQ/L (3.5-5.1); SODIUM LEVEL 138 MEQ/L (136-145); TOTAL PROTEIN 7.3 GM/DL (6.4-8.2)
--- NOTE | 2017-03-10 06:59 | REP ---
Clinical: Cerebrovascular accident . Comparison: 11/12/2014 . Findings: The mediastinum and cardiac silhouette are stable and within normal limits for portable technique. The lung roberts are clear without acute consolidation, effusion, or pneumothorax. Skeletal structures are intact. Impression: Normal portable chest x-ray Signed by Ned Chan MD 03/10/2017 06:51 A
--- NOTE | 2017-03-10 07:12 | HPE ---
DATE OF ADMISSION: 03/10/2017 REASON FOR ADMISSION: Altered mental status. 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 Patient was recently discharged from the hospital on 02/27/2017. Patient was here for grand mal seizure. He normally sees Dr. Jaime outpatient. He has history of intracranial hemorrhage within the right parietal lobe, history of a CVA, gastroesophageal reflux disease (GERD), depression and seizures. He was here on 02/26/2017 for acute seizure, which he had in the morning around 9 o'clock. He stated he had 5 minute of loss of consciousness and biting his tongue. He was admitted and observed. Case was discussed with neurologist who has adjusted his seizure medications. Once patient was observed overnight and no more events occurred, he was discharged home on an increased dose of his medications. He is to followup with his neurologist, Dr. Jaime. However, he stated over the past couple of days he has been feeling "swishing in his brain" and it made him come into the emergency room because he felt anxious, felt like he may be having another stroke. He underwent a CT scan in the emergency room, which showed resolving focal hemorrhage in the right parietal region. There was no new areas of hemorrhage. No other abnormalities of mass effect or midline shift. By the time I examined the patient, he was alert, oriented times three. He had no new focal deficits. Patient always had left upper and lower extremity weakness from prior stroke, but per his and his mom, he was at his baseline at this time. Hospice was called for admission for observation. REVIEW OF SYSTEMS: 12-point review of systems obtained all which was negative except those mentioned above. PAST MEDICAL HISTORY: Significant for hyperlipidemia, seizures, depression, history of CVA in 2014, GERD. PAST SURGICAL HISTORY: None. ALLERGIES TO MEDICATIONS: None. Patient currently lives with his brother. Denies alcohol, tobacco use or any illicit drug use. FAMILY HISTORY: Noncontributory. HOME MEDICATIONS: Include: - atorvastatin 40 mg by mouth at bedtime - baclofen 10 mg by mouth twice a day - vitamin D3 2000 units by mouth daily - Lexapro 20 mg by mouth at bedtime - Lamictal 300 by mouth twice a day - zonisamide 300 mg by mouth twice a day PHYSICAL FINDINGS: Vital signs: Temperature was 97.9. Pulse was 88. Respiratory rate 18. Blood pressure is 128/90. Pulse oximetry 97% on room air. HEENT: Pupils equal, round, reactive to light and accommodation. Neck: Supple. No jugular venous distention (JVD). Lungs: Clear to auscultation (CTA) bilaterally. Abdomen: Soft, nontender, nondistended. Extremities: No clubbing, cyanosis or edema. Neurologic: Cranial nerves II-XII grossly intact. Patient has upper and lower extremity weakness on the left side compared to the right side, but no other focal abnormalities and he appears to be at his baseline. He is awake, alert, oriented times three. No slurred speech. LABORATORY FINDINGS: WBC 7.7, hemoglobin 15.8, hematocrit 46.2, platelet count 304. Sodium 130, potassium 3.6, chloride 103, BUN 22, creatinine 1.33, fasting glucose 87. Magnesium level is pending. Liver enzymes within normal limits. Troponin less than 0.02. TSH 2.39. Lamictal level pending. He had a toxicology screen of the urine, which was all negative. Coag PT was 13.6, INR 1.03, PTT 28.7. CT of the head as above. ASSESSMENT AND PLAN: 1. Altered mental status, which has resolved, unknown etiology at this time. Patient has history of stroke and seizures. There has been no episodes of witnessed seizures. At this time, patient appears to be at his baseline. We will not order an MRI at this time since he recently had one. We will continue neuro checks and seizure precautions. We will continue patient on his home antiseizure medications. Patient already has an appointment with Dr. Jaime next week. 2. History of CVA with residual deficits. 3. Hyperlipidemia. We will resume patient's home medication. 4. History of depression. 5. History of seizure disorders. We will continue patient's home medication. Lamictal level is currently pending. 6. Deep venous thrombosis (DVT) prophylaxis. Thromboembolism deterrents (TEDs) and sequential while in the bed. MTDD
[2017-03-10] MEDS: ENOXAPARIN 30 MG/0.3 ML SYR (J1650) SC SCH (08:59)
[2017-03-10] MEDS: lamoTRIgine 100MG TAB PO SCH ×2 (08:59→20:56)
[2017-03-10] MEDS: SENOKOT S TAB PO SCH ×2 (08:59→20:56)
[2017-03-10] MEDS: BACLOFEN 10 MG TAB PO SCH ×2 (08:59→14:44)
[2017-03-10] MEDS: VITAMIN D 1,000 INTERNATIONAL UNITS TABLET PO SCH (08:59)
[2017-03-10] MEDS ORDERED: ZONISAMIDE 100 MG CAP (ZONEGRAN) PO SCH ×2 (09:00→21:00)
--- NOTE | 2017-03-10 12:20 | REP ---
MRI BRAIN WITHOUT CONTRAST: History: Dizziness. COMPARISON: MRI 11/13/[address] 03/10/2017. An area of increased signal intensity on T2-weighted images is present in the right temporal, parietal and frontal lobes. There is dilatation of the overlying cortical sulci and body of the right lateral ventricle. This represents an old infarction. A small chronic hemorrhagic component is present. The right cerebral peduncle is decreased in size. A small area of increased signal intensity is present in the right cerebral peduncle and sergey. This represents Wallerian degeneration. Areas of increased signal intensity on T2-weighted images are present in the periventricular white matter. This represents small vessel ischemic disease. There is no acute intraparenchymal hemorrhage, acute infarct, mass or midline shift. The ventricular system and cortical sulci are dilated consistent with mild volume loss. There is no extracerebral collection. Minimal mucosal thickening is present in the left maxillary sinus. IMPRESSION: 1. Old right temporal parietal frontal lobe infarction. 2. Small vessel ischemic disease. 3. Mild volume loss. Signed by Jerome Lloyd MD 03/10/2017 12:32 P
[2017-03-10 14:00] VITALS: BP 118/69
[2017-03-10] MEDS ORDERED: ATORVASTATIN 20 MG TAB PO SCH (21:00)
[2017-03-10] MEDS ORDERED: ESCITALOPRAM OXALATE 10 MG TAB (LEXAPRO) PO SCH (21:00)
[2017-03-10 22:00] VITALS: BP 119/61
[2017-03-11 06:00] VITALS: BP 119/60
[2017-03-11 06:14] LABS: ALBUMIN 3.3 GM/DL (3.2-5.2); ALBUMIN/GLOBULIN RATIO 0.89 (1.00-1.93); ALKALINE PHOSPHATASE 114 U/L (45-117); ALT/SGPT 35 U/L (12-78); ANION GAP 6 MEQ/L (8-16); AST/SGOT 22 U/L (15-37); BILIRUBIN,TOTAL 0.4 MG/DL (0.2-1.0); BLOOD UREA NITROGEN 19 MG/DL (7-18); CALCIUM LEVEL 8.6 MG/DL (8.5-10.1); CARBON DIOXIDE LEVEL 28 MEQ/L (21-32); CHLORIDE LEVEL 106 MEQ/L (98-107); CREATININE FOR GFR 1.22 MG/DL (0.70-1.30); GLOMERULAR FILTRATION RATE > 60.0 (>56); GLUCOSE, FASTING 105 MG/DL (70-105); MAGNESIUM LEVEL 2.5 MG/DL (1.8-2.4); POTASSIUM SERUM 3.4 MEQ/L (3.5-5.1); SODIUM LEVEL 140 MEQ/L (136-145)
[2017-03-11] MEDS ORDERED: POTASSIUM CHLORIDE 10 MEQ SR TABLET PO ONE (08:00)
[2017-03-11] MEDS: ENOXAPARIN 30 MG/0.3 ML SYR (J1650) SC SCH (09:00)
[2017-03-11] MEDS ORDERED: ZONISAMIDE 100 MG CAP (ZONEGRAN) PO SCH (09:00)
[2017-03-11] MEDS ORDERED: ZONE100C4 PO ×2 (09:22)
[2017-03-11] MEDS: SENOKOT S TAB PO SCH (09:48)
[2017-03-11] MEDS: VITAMIN D 1,000 INTERNATIONAL UNITS TABLET PO SCH (09:48)
[2017-03-11] MEDS: lamoTRIgine 100MG TAB PO SCH (09:49)
[2017-03-11] MEDS: BACLOFEN 10 MG TAB PO SCH (09:49)
--- NOTE | 2017-03-11 15:33 | DSES ---
DATE OF ADMISSION: 03/10/2017 DATE OF DISCHARGE: 03/11/2017 PRIMARY CARE PHYSICIAN: Dr. Maynor Ricci REFERRING PHYSICIAN: None. CONSULTING PHYSICIAN: None. CONDITION ON DISCHARGE: Stable. FINAL DIAGNOSIS: Dizziness/mild confusion, likely secondary to medication adjustment. PROCEDURES: None. HISTORY OF PRESENT ILLNESS: Patient is a 52-year-old male with a past medical history of dyslipidemia, seizure disorder, depression, history of cerebrovascular accident (CVA) in 2013, and gastroesophageal reflux disease (GERD) who presented to the emergency room after he had complaints of feeling of swishing in his brain and dizziness that made him come to the emergency room. Patient was recently admitted to the hospital and subsequently discharged on February 27. Throughout that course, patient had seizure medication adjusted because of a recent seizure activity. Patient was on zonisamide and lamotrigine, which was increased from his baseline level. HOSPITAL COURSE: 1. Dizziness, likely secondary to medication adjustment. Patient has been complaining of swishing in his brain, which has resolved throughout his hospital course. Patient had an MRI, which was negative for any acute findings. Discussed the case with neurology, who has advised to decrease the dose of his zonisamide. Adjustments have been made, and patient has been asymptomatic. He has been advised to followup with his primary care provider and neurology within the next 7 days. 2. History of CVA with residual deficit. 3. Dyslipidemia. Continue with home medication. 4. History of depression. 5. History of seizure disorder. Medications have been adjusted. 6. Deep vein thrombosis (DVT) prophylaxis. Continue with sleeve compression devices. DISCHARGE MEDICATIONS: Patient admitted and patient went home with the following medication list: - atorvastatin 40 mg by mouth at bedtime - baclofen 10 mg by mouth twice a day - vitamin D 2000 units by mouth daily - escitalopram 20 mg by mouth at bedtime - lamotrigine 300 mg by mouth twice a day Stopped include zonisamide 300 mg by mouth twice a day. New medications prescribed include zonisamide 200 mg in the morning and 300 mg in the evening. DISCHARGE INSTRUCTIONS: Patient has been advised to followup with his primary care provider and neurology within the next 7 days. He is advised to remain complaint with treatment plan and medications and return to the emergency room if he experiences any problems. TIME SPENT ON DISCHARGE: 35 minutes.
== END 2017-03-11 10:14 | disposition home or self-care (01) ==
LOC: EDBD 00:37 → M ED 01:40 → M ED INP 01:41 → M MSPAV 04:29
PROVIDERS: ADMIT Internal Medicine; ATTEND Internal Medicine
DX: R42 Dizziness and giddiness (principal); R41.0 Disorientation, unspecified; E78.5 Hyperlipidemia, unspecified; F32.9 Major depressive disorder, single episode, unspecified; K21.9 Gastro-esophageal reflux disease without esophagitis; Z86.73 Personal history of transient ischemic attack (TIA), and cerebral infarction without residual deficits; Z79.899 Other long term (current) drug therapy; Z79.01 Long term (current) use of anticoagulants
CPT/HCPCS: 36415; 70450; 70551; 71010; 80053; 80175; 80306; 81001; 82550; 82553; 83690; 83735; 84439; 84443; 84484; 85025; 85610; 85730; 86850; 86900; 86901; 87086; 93005; 93041; 94760; 96374; 99285; G0378; J1650; J2405

== ENCOUNTER → 2017-03-22 | Outpatient (REF) | payer MEDICARE ==
[~2017-03-22] MED LIST changes: +ZONE100C4 PO
[2017-03-22 12:43] LABS: BASO % 0.7 % (0.0-1.0); EOS # 0.1 K/mm3 (0.0-0.50); LARGE UNSTAINED CELL % 0.7 % (0.0-4.0); LYMPH # 1.1 K/mm3 (1.5-4.5); LYMPH % 22.5 % (24.0-44.0); MEAN CORPUSCULAR HEMOGLOBIN 28.7 pg (27.0-33.0); MEAN CORPUSCULAR HGB CONC 32.6 g/dl (32.0-36.5); MEAN CORPUSCULAR VOLUME 88.1 fl (80.0-96.0); MONO # 0.2 K/mm3 (0.0-0.8); MONO % 4.9 % (0.0-5.0); NEUTROPHILS # 3.3 K/mm3 (1.8-7.7); NEUTROPHILS % 69.1 % (36.0-66.0); PLATELET COUNT, AUTOMATED 375 k/mm3 (150-450); RED CELL DISTRIBUTION WIDTH 13.1 % (11.5-14.5); WHITE BLOOD COUNT 4.8 K/mm3 (4.0-10.0)
[2017-03-22 14:32] LABS: ALBUMIN/GLOBULIN RATIO 1.38 (1.00-1.93); ALKALINE PHOSPHATASE 137 U/L (45-117); ALT/SGPT 56 U/L (12-78); ANION GAP 7 MEQ/L (8-16); AST/SGOT 17 U/L (15-37); BILIRUBIN,TOTAL 0.4 MG/DL (0.2-1.0); BLOOD UREA NITROGEN 12 MG/DL (7-18); CALCIUM LEVEL 9.3 MG/DL (8.5-10.1); CARBON DIOXIDE LEVEL 27 MEQ/L (21-32); CHLORIDE LEVEL 108 MEQ/L (98-107); CREATININE FOR GFR 1.16 MG/DL (0.70-1.30); GLOMERULAR FILTRATION RATE > 60.0 (>56); GLUCOSE, FASTING 69 MG/DL (70-105); POTASSIUM SERUM 4.4 MEQ/L (3.5-5.1); SODIUM LEVEL 142 MEQ/L (136-145); TOTAL PROTEIN 6.9 GM/DL (6.4-8.2)
== END ==
LOC: M LABNEURO 12:19
PROVIDERS: ATTEND Psychiatry & Neurology Neurology
DX: G40.009 Localization-related (focal) (partial) idiopathic epilepsy and epileptic syndromes with seizures of localized onset, not intractable, without status epilepticus (principal); I63.031 Cerebral infarction due to thrombosis of right carotid artery; G81.12 Spastic hemiplegia affecting left dominant side

== ENCOUNTER → 2017-07-07 | Outpatient (REF) | payer MEDICARE ==
[~2017-07-07] MED LIST changes: -ATOR40TA PO; +ATOR40TA75 PO; -ZONE100C4 PO; +ZONE1CAP PO
== END ==
LOC: M LAB REF 12:30
PROVIDERS: ATTEND Internal Medicine
DX: G40.309 Generalized idiopathic epilepsy and epileptic syndromes, not intractable, without status epilepticus (principal)

== ENCOUNTER → 2018-02-06 | Outpatient (REF) | payer MEDICARE ==
[2018-02-08 10:16] LABS: LAMOTRIGINE (LAMICTAL) 16.4 ug/mL (2.0-20.0)
== END ==
LOC: M LAB REF 11:52
DX: G40.309 Generalized idiopathic epilepsy and epileptic syndromes, not intractable, without status epilepticus (principal)
CPT/HCPCS: 80175

== ENCOUNTER → 2018-10-05 | Outpatient (CLI) | payer MEDICARE ==
[~2018-10-05] MED LIST changes: -LAMO150T PO; +LAMO150T2 PO
[2018-10-05 14:18] LABS: BASO # 0.1 10^3/uL (0.0-0.2); EOS # 0.2 10^3/uL (0.0-0.50); EOS % 3.2 % (0.0-3.0); HEMATOCRIT 43.1 % (42.0-52.0); HEMOGLOBIN 13.8 g/dl (13.5-17.5); LYMPH # 1.4 10^3/uL (1.5-4.5); LYMPH % 23.4 % (24.0-44.0); MEAN CORPUSCULAR HEMOGLOBIN 28.6 pg (27.0-33.0); MEAN CORPUSCULAR VOLUME 89.4 fl (80.0-96.0); MONO # 0.3 10^3/uL (0.0-0.8); NEUTROPHILS % 67.1 % (36.0-66.0); PLATELET COUNT, AUTOMATED 306 10^3/uL (150-450); RED BLOOD COUNT 4.82 10^6/uL (4.30-6.10)
[2018-10-05 14:24] LABS: ALT/SGPT 32 U/L (12-78); BILIRUBIN,TOTAL 0.3 MG/DL (0.2-1.0); BLOOD UREA NITROGEN 14 MG/DL (7-18); CALCIUM LEVEL 8.8 MG/DL (8.5-10.1); CARBON DIOXIDE LEVEL 26 MEQ/L (21-32); CHLORIDE LEVEL 106 MEQ/L (98-107); CREATININE FOR GFR 1.05 MG/DL (0.70-1.30); GLOMERULAR FILTRATION RATE > 60.0 (>56); GLUCOSE, FASTING 78 MG/DL (70-100); SODIUM LEVEL 140 MEQ/L (136-145); TOTAL PROTEIN 6.7 GM/DL (6.4-8.2)
[2018-10-05 14:33] LABS: TOTAL 25(OH) VITAMIN D 12.8 NG/ML (30.0-100.0); VITAMIN B12 LEVEL 629 PG/ML
[2018-10-05 14:34] LABS: FOLATE 7.4 NG/ML
[2018-10-08 14:09] LABS: LAMOTRIGINE (LAMICTAL) 4.1 ug/mL (2.0-20.0)
== END ==
LOC: M WUC 11:08
PROVIDERS: ATTEND Psychiatry & Neurology Neurology
DX: G81.12 Spastic hemiplegia affecting left dominant side (principal); I63.031 Cerebral infarction due to thrombosis of right carotid artery; G40.009 Localization-related (focal) (partial) idiopathic epilepsy and epileptic syndromes with seizures of localized onset, not intractable, without status epilepticus

== ENCOUNTER → 2019-01-02 | Outpatient (REF) | payer MEDICARE | LOC: M LAB REF 17:59 | PROVIDERS: ATTEND Internal Medicine | DX: G40.309 Generalized idiopathic epilepsy and epileptic syndromes, not intractable, without status epilepticus (principal) ==

== ENCOUNTER 2019-03-02 22:06 | Emergency (ER) | payer MEDICARE ==
[~2019-03-02] VITALS: Ht 177.8 cm; Wt 75.5 kg
[~2019-03-02 22:06] MED LIST changes: -ASPI1TAB PO; +ASPI81TA26 PO; +ZONISAMIDE 100 MG CAP (ZONEGRAN) PO SCH
--- NOTE | 2019-03-02 22:57 | REPVR ---
EXAM: CT Head Without Contrast EXAM DATE/TIME: 03/02/2019 10:31 PM CLINICAL HISTORY: 54 years old, male; Injury or trauma; Fall; Additional info: Fall, seizure TECHNIQUE: Imaging protocol: Axial computed tomography images of the head without contrast. Radiation optimization: All CT scans at this facility use at least one of these dose optimization techniques: automated exposure control; mA and/or kV adjustment per patient size (includes targeted exams where dose is matched to clinical indication); or iterative reconstruction. COMPARISON: CT Head without contrast 03/10/2017 12:50 AM FINDINGS: Brain: Large focus of macrocystic encephalomalacia in the right cerebral artery territory. Chronic white matter changes in the white matter of the subcortical region and centrum semi-ovale and right hemisphere. Ventricles: Disproportionate enlargement of the ventricles relative to patient age may indicate the presence of communicating or normal pressure hydrocephalus. Bones/joints: Unremarkable. No acute fracture. Sinuses: Visualized sinuses are unremarkable. No fluid levels. Mastoid air cells: Visualized mastoid air cells are well aerated. No mastoid effusion. Soft tissues: Unremarkable. IMPRESSION: 1. Large focus of macrocystic encephalomalacia in the right cerebral artery territory. 2. Disproportionate enlargement of the ventricles relative to patient age may indicate the presence of communicating or normal pressure hydrocephalus. 3. No acute findings. Electronically signed by: Eliot Billy On 03/02/2019 22:57:10 PM
--- NOTE | 2019-03-02 23:02 | REPVR ---
EXAM: CT Cervical Spine Without Contrast EXAM DATE/TIME: 03/02/2019 10:31 PM CLINICAL HISTORY: 54 years old, male; Injury or trauma; Fall; Initial encounter; Blunt trauma; Additional info: Fall, seizure TECHNIQUE: Imaging protocol: Axial computed tomography images of the cervical spine without contrast. Coronal and sagittal reformatted images were created and reviewed. Radiation optimization: All CT scans at this facility use at least one of these dose optimization techniques: automated exposure control; mA and/or kV adjustment per patient size (includes targeted exams where dose is matched to clinical indication); or iterative reconstruction. COMPARISON: No relevant prior studies available. FINDINGS: Vertebrae: Mild arthritic changes at the atlantoaxial joint. Discs/Spinal canal/Neural foramina: Mild foraminal narrowing on the right at C3, bilateral foraminal narrowing at C4, moderate to severe bilateral foraminal narrowing at C5, mild bilateral foraminal narrowing at C6 secondary to uncinate joint hypertrophic changes. Posterior disc protrusions at C3-4, C4-5 effaces the ventral subarachnoid space with mild cord impingement at each level. Disc osteophyte complex at C5-6 without cord impingement. Soft tissues: Unremarkable. Lungs: Lung apices are normal. IMPRESSION: Degenerative spondylosis. No acute findings. Electronically signed by: Eliot Billy On 03/02/2019 23:01:57 PM
[2019-03-03 00:06] LABS: HEMOGLOBIN 14.1 g/dl (13.5-17.5); MEAN CORPUSCULAR HEMOGLOBIN 28.1 pg (27.0-33.0); MEAN CORPUSCULAR VOLUME 87.6 fl (80.0-96.0); PLATELET COUNT, AUTOMATED 277 10^3/uL (150-450); RED BLOOD COUNT 5.02 10^6/uL (4.30-6.10); WHITE BLOOD COUNT 6.8 10^3/uL (4.0-10.0)
[2019-03-03] MEDS ORDERED: ZONI100C2 PO (00:06)
[2019-03-03 00:14] LABS: ALBUMIN 3.9 GM/DL (3.2-5.2); ALT/SGPT 43 U/L (12-78); BILIRUBIN,TOTAL 0.3 MG/DL (0.2-1.0); BLOOD UREA NITROGEN 15 MG/DL (7-18); CALCIUM LEVEL 8.8 MG/DL (8.5-10.1); CARBON DIOXIDE LEVEL 27 MEQ/L (21-32); CHLORIDE LEVEL 107 MEQ/L (98-107); CREATININE FOR GFR 1.06 MG/DL (0.70-1.30); GLOMERULAR FILTRATION RATE > 60.0 (>56); GLUCOSE, FASTING 94 MG/DL (70-100); SODIUM LEVEL 140 MEQ/L (136-145); TOTAL PROTEIN 7.1 GM/DL (6.4-8.2)
[2019-03-03] MEDS ORDERED: lamoTRIgine 100MG TAB PO ONE (00:15)
[2019-03-03 01:14] VITALS: BP 118/62
--- NOTE | 2019-03-05 14:30 | ED PDOC ---
Post-Departure Follow-Up dr suggs and dr francois faxed formal report of ct head for fu Augustine Castillo MD March 05, 2019 14:30
[2019-03-06 14:11] LABS: LAMOTRIGINE (LAMICTAL) 7.1 ug/mL (2.0-20.0)
== END 2019-03-03 01:15 | disposition home or self-care (01) ==
LOC: M ED 22:06
DX: G40.909 Epilepsy, unspecified, not intractable, without status epilepticus (principal); I10 Essential (primary) hypertension; K21.9 Gastro-esophageal reflux disease without esophagitis; F32.9 Major depressive disorder, single episode, unspecified; Z91.040 Latex allergy status; Z79.899 Other long term (current) drug therapy

== ENCOUNTER → 2019-07-24 | Outpatient (REF) | payer MEDICARE ==
[~2019-07-24] MED LIST changes: -ZONISAMIDE 100 MG CAP (ZONEGRAN) PO SCH
== END ==
LOC: M LAB REF 11:58
PROVIDERS: ATTEND Internal Medicine
DX: G40.309 Generalized idiopathic epilepsy and epileptic syndromes, not intractable, without status epilepticus (principal)

== ENCOUNTER → 2019-09-05 | Outpatient (CLI) | payer MEDICARE ==
[2019-09-05 13:26] LABS: FOLATE 7.6 NG/ML; TOTAL 25(OH) VITAMIN D 12.3 NG/ML (30.0-100.0)
== END ==
LOC: M WUC 09:41
PROVIDERS: ATTEND Psychiatry & Neurology Neurology
DX: G40.89 Other seizures (principal); E55.9 Vitamin D deficiency, unspecified; E51.9 Thiamine deficiency, unspecified; E53.8 Deficiency of other specified B group vitamins

== ENCOUNTER → 2020-01-27 | Outpatient (REF) | payer MEDICARE ==
[~2020-01-27] MED LIST changes: -LAMO150T2 PO; +LAMO150T3 PO; +ZONI100C17 PO; -ZONI100C2 PO
== END ==
LOC: M LAB REF 16:36
PROVIDERS: ATTEND Internal Medicine
DX: G40.309 Generalized idiopathic epilepsy and epileptic syndromes, not intractable, without status epilepticus (principal)

== ENCOUNTER → 2020-06-19 | Outpatient (CLI) | payer MEDICARE ==
[2020-06-19 19:21] LABS: BASO % 0.5 % (0.0-1.0); EOS # 0.1 10^3/uL (0.0-0.5); EOS % 1.9 % (0.0-3.0); HEMATOCRIT 44.1 % (42.0-52.0); HEMOGLOBIN 13.5 g/dl (13.5-17.5); LYMPH # 1.5 10^3/uL (1.5-5.0); LYMPH % 25.8 % (24.0-44.0); MEAN CORPUSCULAR HEMOGLOBIN 28.4 pg (27.0-33.0); MEAN CORPUSCULAR HGB CONC 30.6 g/dl (32.0-36.5); MEAN CORPUSCULAR VOLUME 92.6 fl (80.0-96.0); MONO # 0.4 10^3/uL (0.0-0.8); MONO % 6.4 % (0.0-5.0); NEUTROPHILS # 3.7 10^3/uL (1.5-8.5); PLATELET COUNT, AUTOMATED 287 10^3/uL (150-450); RED BLOOD COUNT 4.76 10^6/uL (4.30-6.10); WHITE BLOOD COUNT 5.7 10^3/uL (4.0-10.0)
[2020-06-19 19:48] LABS: ALBUMIN 4.1 GM/DL (3.2-5.2); ALT/SGPT 26 U/L (12-78); BILIRUBIN,TOTAL 0.5 MG/DL (0.2-1.0); BLOOD UREA NITROGEN 13 MG/DL (7-18); CALCIUM LEVEL 9.3 MG/DL (8.5-10.1); CARBON DIOXIDE LEVEL 28 MEQ/L (21-32); CHLORIDE LEVEL 104 MEQ/L (98-107); CREATININE FOR GFR 1.08 MG/DL (0.70-1.30); GLOMERULAR FILTRATION RATE > 60.0 (>56); GLUCOSE, FASTING 73 MG/DL (70-100); SODIUM LEVEL 136 MEQ/L (136-145); TOTAL 25(OH) VITAMIN D 108.7 NG/ML (30.0-100.0); TOTAL PROTEIN 6.9 GM/DL (6.4-8.2)
[2020-06-26 15:07] LABS: LAMOTRIGINE (LAMICTAL) 12.8 ug/mL (2.0-20.0)
== END ==
LOC: M WUC 11:20
PROVIDERS: ATTEND Psychiatry & Neurology Neurology
DX: G40.909 Epilepsy, unspecified, not intractable, without status epilepticus (principal); Z79.899 Other long term (current) drug therapy

== ENCOUNTER → 2020-09-21 | Outpatient (REF) | payer MEDICARE | LOC: M LAB REF 16:25 | PROVIDERS: ATTEND Internal Medicine | DX: G40.309 Generalized idiopathic epilepsy and epileptic syndromes, not intractable, without status epilepticus (principal) ==

== ENCOUNTER → 2021-04-06 | Outpatient (REF) | payer MEDICARE ==
[~2021-04-06] MED LIST changes: -ESCI20TA; -ESCI20TA PO; +ESCI20TA16; +ESCI20TA16 PO
== END ==
LOC: M LAB REF 11:11
PROVIDERS: ATTEND Internal Medicine
DX: G40.309 Generalized idiopathic epilepsy and epileptic syndromes, not intractable, without status epilepticus (principal)

== ENCOUNTER 2021-06-22 16:20 | Emergency (ER) | payer MEDICARE ==
[~2021-06-22] VITALS: Ht 177.8 cm; Wt 59.1 kg
[2021-06-22] MEDS ORDERED: LAMO200T3 (16:38)
[2021-06-22] MEDS ORDERED: TRAZ-252 (16:38)
[2021-06-22 17:12] LABS: HEMATOCRIT 44.9 % (42.0-52.0); HEMOGLOBIN 14.4 g/dl (13.5-17.5); MEAN CORPUSCULAR HEMOGLOBIN 28.5 pg (27.0-33.0); MEAN CORPUSCULAR HGB CONC 32.1 g/dl (32.0-36.5); MEAN CORPUSCULAR VOLUME 88.9 fl (80.0-96.0); PLATELET COUNT, AUTOMATED 261 10^3/uL (150-450); RED BLOOD COUNT 5.05 10^6/uL (4.30-6.10); WHITE BLOOD COUNT 5.8 10^3/uL (4.0-10.0)
[2021-06-22 17:37] LABS: BLOOD UREA NITROGEN 10 MG/DL (7-18); CARBON DIOXIDE LEVEL 26 MEQ/L (21-32); CHLORIDE LEVEL 108 MEQ/L (98-107); GLOMERULAR FILTRATION RATE > 60.0 (>56); GLUCOSE, FASTING 88 MG/DL (70-100); POTASSIUM SERUM 3.7 MEQ/L (3.5-5.1); SODIUM LEVEL 139 MEQ/L (136-145)
[2021-06-22 18:15] VITALS: BP 123/72
== END 2021-06-22 18:45 | disposition home or self-care (01) ==
LOC: EDBD 16:20 → M ED 16:20
DX: R55 Syncope and collapse (principal); J00 Acute nasopharyngitis [common cold]; G40.309 Generalized idiopathic epilepsy and epileptic syndromes, not intractable, without status epilepticus; Z86.73 Personal history of transient ischemic attack (TIA), and cerebral infarction without residual deficits; Z91.040 Latex allergy status; Z79.899 Other long term (current) drug therapy

== ENCOUNTER → 2021-07-16 | Outpatient (CLI) | payer MEDICARE ==
[~2021-07-16] MED LIST changes: +LAMO200T3; +TRAZ-252
[2021-07-16 11:49] LABS: BASO # 0.1 10^3/uL (0.0-0.2); BASO % 0.7 % (0.0-1.0); EOS # 0.2 10^3/uL (0.0-0.5); EOS % 2.7 % (0.0-3.0); HEMATOCRIT 41.5 % (42.0-52.0); HEMOGLOBIN 12.9 g/dl (13.5-17.5); LYMPH # 1.4 10^3/uL (1.5-5.0); LYMPH % 20.1 % (24.0-44.0); MEAN CORPUSCULAR HGB CONC 31.1 g/dl (32.0-36.5); MONO # 0.3 10^3/uL (0.0-0.8); MONO % 4.2 % (2.0-8.0); NEUTROPHILS # 4.8 10^3/uL (1.5-8.5); NEUTROPHILS % 71.9 % (36.0-66.0); PLATELET COUNT, AUTOMATED 447 10^3/uL (150-450); RED BLOOD COUNT 4.61 10^6/uL (4.30-6.10); WHITE BLOOD COUNT 6.7 10^3/uL (4.0-10.0)
[2021-07-16 12:13] LABS: ALBUMIN 3.5 GM/DL (3.2-5.2); ALT/SGPT 25 U/L (12-78); BILIRUBIN,TOTAL 0.5 MG/DL (0.2-1.0); BLOOD UREA NITROGEN 13 MG/DL (7-18); CALCIUM LEVEL 9.1 MG/DL (8.5-10.1); CARBON DIOXIDE LEVEL 27 MEQ/L (21-32); CHLORIDE LEVEL 106 MEQ/L (98-107); CREATININE FOR GFR 1.04 MG/DL (0.70-1.30); GLOMERULAR FILTRATION RATE > 60.0 (>56); GLUCOSE, FASTING 96 MG/DL (70-100); POTASSIUM SERUM 3.4 MEQ/L (3.5-5.1); SODIUM LEVEL 139 MEQ/L (136-145); TOTAL PROTEIN 6.6 GM/DL (6.4-8.2)
[2021-07-19 20:08] LABS: LAMOTRIGINE (LAMICTAL) 9.3 ug/mL (2.0-20.0)
== END ==
LOC: M WUC 09:18
PROVIDERS: ATTEND Psychiatry & Neurology Neurology
DX: R56.9 Unspecified convulsions (principal)

== ENCOUNTER → 2021-09-28 | Outpatient (REF) | payer MEDICARE | LOC: M LAB REF 16:22 | PROVIDERS: ATTEND Internal Medicine | DX: G40.309 Generalized idiopathic epilepsy and epileptic syndromes, not intractable, without status epilepticus (principal) ==

== ENCOUNTER 2022-01-30 17:05 | Emergency (ER) | payer MEDICARE ==
[~2022-01-30] VITALS: Ht 177.8 cm; Wt 63.0 kg
[2022-01-30] MEDS ORDERED: BOOSTRIX/ADACEL VACCINE (DIPHTH/PERTUSS/ACELL/TETANUS) 0.5ML SYR IM ONE (18:50)
[2022-01-30] MEDS ORDERED: LIDOCAINE 2% MDV 20ML VIAL SC ONE (18:50)
[2022-01-30] MEDS ORDERED: ACETAMINOPHEN TAB 650MG DOSE (2X325MG) PO ONE (18:50)
[2022-01-30] MEDS ORDERED: BACITRACIN OINTMENT 30GM TUBE TOP ONE (19:50)
[2022-01-30 20:09] VITALS: BP 130/70
== END 2022-01-30 20:10 | disposition home or self-care (01) ==
LOC: EDBD 17:05 → M ED 17:05
DX: S01.01XA Laceration without foreign body of scalp, initial encounter (principal); W01.0XXA Fall on same level from slipping, tripping and stumbling without subsequent striking against object, initial encounter; W22.8XXA Striking against or struck by other objects, initial encounter; Y92.009 Unspecified place in unspecified non-institutional (private) residence as the place of occurrence of the external cause; Y93.9 Activity, unspecified; Y99.9 Unspecified external cause status; Z91.040 Latex allergy status